=== PATIENT | male | born 1950 | race Two or more races ===

== ENCOUNTER 2018-02-17 10:59 | Emergency (ER) | payer MEDICARE ==
[~2018-02-17] VITALS: Ht 172.7 cm; Wt 98.0 kg
[2018-02-17 11:12] VITALS: BP 126/76
[2018-02-17] MEDS ORDERED: LIDOCAINE HCL/PF 1% 30 ML SDV ONE (11:42)
[2018-02-17] MEDS ORDERED: LIDOCAINE 1% INJ 50 ML MDV IJ ONE (12:00)
== END 2018-02-17 12:56 | disposition home or self-care (01) ==
LOC: ER 10:59
DX: L05.01 Pilonidal cyst with abscess (principal); E11.9 Type 2 diabetes mellitus without complications; I10 Essential (primary) hypertension
CPT/HCPCS: 10080; 99284; A4606; A6403; A6407; J3490

== ENCOUNTER 2018-02-18 15:11 | Emergency (ER) | payer MEDICARE ==
[~2018-02-18] VITALS: Ht 167.6 cm; Wt 92.1 kg
[2018-02-18 15:48] VITALS: BP 131/79
== END 2018-02-18 16:23 | disposition home or self-care (01) ==
LOC: ER 15:13
DX: L05.01 Pilonidal cyst with abscess (principal); I10 Essential (primary) hypertension; E11.9 Type 2 diabetes mellitus without complications
CPT/HCPCS: 99281; A4606; Z7502

== ENCOUNTER 2018-02-24 11:12 | Emergency (ER) | payer MEDICARE ==
[~2018-02-24] VITALS: Ht 167.6 cm; Wt 96.2 kg
[2018-02-24 11:23] VITALS: BP 129/70
== END 2018-02-24 11:48 | disposition home or self-care (01) ==
LOC: ER 11:19
DX: L05.01 Pilonidal cyst with abscess (principal); I10 Essential (primary) hypertension; E11.9 Type 2 diabetes mellitus without complications
CPT/HCPCS: 99281; A4606; Z7502

== ENCOUNTER 2022-03-16 11:32 | Emergency (ER) | payer MEDICARE ==
[~2022-03-16] VITALS: Ht 172.7 cm; Wt 122.5 kg
--- NOTE | 2022-03-16 11:38 | NUR ---
PT ON BED, A/OX4, ON RA, SEEN BY , CONTINUE TO MONITOR
--- NOTE | 2022-03-16 11:38 | NUR ---
dr wilson at bedside for eval
--- NOTE | 2022-03-16 11:40 | NUR ---
PT TO CT
[2022-03-16] MEDS ORDERED: SUMATRIPTAN SUCCINATE 6 MG/0.5 ML VIAL SQ ONE ×2 (11:50→12:00)
[2022-03-16] MEDS ORDERED: METOCLOPRAMIDE HCL 10 MG/2 ML VIAL ONE (11:50)
[2022-03-16] MEDS ORDERED: METOCLOPRAMIDE HCL 10 MG/2 ML VIAL IV ONE (12:00)
--- NOTE | 2022-03-16 12:00 | NUR ---
PT BACK FROM CT, LEFT HAND IV INFILTRATED, NEW IV STARTED ON LEFT AC G 20
[2022-03-16 12:15] LABS: BASOPHILS % (AUTO) 0.3 % (0.0-2.0); EOSINOPHILS % (AUTO) 1.7 % (0.0-6.0); HEMATOCRIT 37 % (39-51); HEMOGLOBIN 12.3 g/dL (13.5-17.5); LYMPHOCYTES # (AUTO) 0.8 K/uL (0.8-4.8); LYMPHOCYTES % (AUTO) 10.4 % (20.0-44.0); MEAN CORPUSCULAR HGB CONC 33 g/dl (31.0-36.0); MEAN CORPUSCULAR VOLUME 88 fL (80-96); MONOCYTES # (AUTO) 0.6 K/uL (0.1-1.30); MONOCYTES % (AUTO) 7.7 % (2.0-12.0); NEUTROPHILS # (AUTO) 6.4 K/uL (1.8-8.9); NEUTROPHILS % (AUTO) 79.9 % (43.0-81.0); PLATELET COUNT (AUTO) 257 K/uL (150-450); RED BLOOD CELL COUNT(AUTO) 4.16 MIL/uL (4.5-6.0)
[2022-03-16 12:19] LABS: CALCIUM, SERUM 8.2 mg/dL (8.5-10.1); CARBON DIOXIDE 25 mmol/L (21-32); CHLORIDE 102 mmol/L (98-107); CREATININE 2.6 mg/dL (0.6-1.3); GLUCOSE 141 mg/dL (74-106); POTASSIUM 3.7 mmol/L (3.5-5.1); SODIUM SERUM 136 mmol/L (136-145); UREA NITROGEN, BLOOD 27 mg/dL (7-18)
--- NOTE | 2022-03-16 12:30 | NUR ---
PT SLEEPING , NO DISTESS NOTED
--- NOTE | 2022-03-16 13:00 | NUR ---
PT C/O H/A 05/21 . REQUESTING PAIN MEDS , DR MARQUES NOTIFIED
[2022-03-16] MEDS ORDERED: KETOROLAC TROMETHAMINE INJ 30 MG/ML VIAL IV ONE (13:30)
[2022-03-16] MEDS ORDERED: KETOROLAC TROMETHAMINE 15 MG/ML VIAL ONE (13:30)
[2022-03-16] MEDS ORDERED: LABETALOL HCL IV 100MG VIAL ONE (13:41)
--- NOTE | 2022-03-16 13:41 | NUR ---
DR MARQUES NOTIFIED REGARDING HIGH BP , NEW ORDER RECEIVED
[2022-03-16] MEDS ORDERED: LABETALOL HCL IV 100MG VIAL IV ONE (14:00)
[2022-03-16] MEDS ORDERED: KETO10TA2 PO (14:12)
[2022-03-16] MEDS ORDERED: SUMA100T16 PO (14:12)
--- NOTE | 2022-03-16 14:32 | NUR ---
iv discountinued per discharge order
--- NOTE | 2022-03-16 14:33 | NUR ---
Patient discharged to home in stable condition. Written and verbal after care instructions given. Patient verbalizes understanding of instruction. IV removed. Catheter intact and site benign. Pressure and 4x4 applied to site. No bleeding noted.
[2022-03-16 14:34] VITALS: BP 160/78
== END 2022-03-16 14:37 | disposition home or self-care (01) ==
LOC: ER 11:40
DX: R51.9 Headache, unspecified (principal); G96.08 Other cranial cerebrospinal fluid leak; I10 Essential (primary) hypertension; E11.9 Type 2 diabetes mellitus without complications; Z79.899 Other long term (current) drug therapy
CPT/HCPCS: 99285; 96374; 70450; 96375; 85025; 80048; 36415; 84484; 85730; 96372; J3030; J3490; J2765; J1885